=== PATIENT | male | born 1930 | race Caucasian/White ===

== ENCOUNTER 2016-07-29 11:38 | Emergency (ER) | payer MEDICARE, BC ==
[2016-07-29] MEDS ORDERED: Acetaminophen/HYDROcodone 325-5 MG Tab PO ONE (12:19)
[2016-07-29] MEDS ORDERED: Ibuprofen 600 MG Tab PO ONE (12:19)
--- NOTE | 2016-07-29 12:25 | EDM.PDOC ---
ED HPI GENERAL MEDICAL PROBLEM - General Chief Complaint: General Stated Complaint: RT SIDED PAIN Time Seen by Provider: 07/29/16 11:38 Source of Information: Reports: Patient, Family - History of Present Illness INITIAL COMMENTS - FREE TEXT/NARRATIVE: 85 y.o.w.m. fell over an object on his left chest 3 days ago over an objet. No N /V/D, chest pain, dizziness or light headedness or any other acute medical issues. . Onset Date: 07/26/16 Onset Time: 16:00 Duration: Day(s): Location: Reports: Chest Quality: Reports: Burning, Dull Severity: Moderate Improves with: Reports: Cold Therapy, Immobilization Worsens with: Reports: Movement Context: Reports: Trauma Left Thoracic Pain Score (Numeric/FACES): 8 - Related Data Allergies Allergy/AdvReac Type Severity Reaction Status Date / Time No Known Allergies Allergy Verified 07/29/16 11:50 Home Meds: Home Meds Acetaminophen/HYDROcodone [[place] 325-5 MG] 1 - 2 tab PO Q6H PRN #20 tab [Rx] ED ROS GENERAL - Review of Systems Review Of Systems: See Below Constitutional: Reports: No Symptoms HEENT: Reports: No Symptoms Respiratory: Reports: No Symptoms Cardiovascular: Reports: No Symptoms Endocrine: Reports: No Symptoms GI/Abdominal: Reports: No Symptoms : Reports: No Symptoms Musculoskeletal: Reports: Other (left chest wall pain) Skin: Reports: No Symptoms Neurological: Reports: No Symptoms Psychiatric: Reports: No Symptoms Hematologic/Lymphatic: Reports: No Symptoms Immunologic: Reports: No Symptoms ED EXAM, GENERAL - Physical Exam Exam: See Below Exam Limited By: Physical Impairment General Appearance: Alert, WD/WN, Mild Distress Eye Exam: Bilateral Eye: Normal Inspection Ears: Normal External Exam Ear Exam: Bilateral Ear: Auricle Normal Nose: Normal Inspection Throat/Mouth: Normal Inspection Head: Atraumatic, Normocephalic Neck: Normal Inspection, Supple, Non-Tender, Full Range of Motion Respiratory/Chest: No Respiratory Distress, Lungs Clear, Other (poor air movement due to left ant rib pain) Cardiovascular: Normal Peripheral Pulses, Regular Rate, Rhythm, No Edema, No Gallop, No JVD, No Murmur, No Rub, Other (tender ant CW) Peripheral Pulses: 1+: Femoral (L), Femoral (R) GI/Abdominal: Normal Bowel Sounds, Soft, Non-Tender, No Organomegaly, No Distention, No Abnormal Bruit, No Mass (Male) Exam: Deferred Rectal (Males) Exam: Deferred Back Exam: Normal Inspection, Full Range of Motion Extremities: Normal Inspection, Normal Range of Motion, Non-Tender Neurological: Alert, Oriented, CN II-XII Intact, Normal Cognition Psychiatric: Normal Affect, Normal Mood Skin Exam: Warm, Dry, Intact, Normal Color, No Rash Lymphatic: No Adenopathy EKG INTERPRETATION EKG Date: 07/29/16 Time: 12:50 Rhythm: NSR Rate (beats/min): 74 [place]: normal P-wave: present QRS: normal ST-T: normal QT: normal Comparison: NA - no prior EKG Course - Vital Signs Text/Narrative:: 85 y.o.w.m. fell over an object on his left chest 3 days ago over an object. No N/V/D, chest pain, dizziness or light headedness or any other acute medical issues. PE: Left an t rip pain Imaging: Left 9th rib fx Impression: Left 9th rib fx Tx: Ice, Vicodin, Motrin Reexam; improved Plan: D/C with instructions Last Recorded V/S: Last Vital Signs Temp 34.7 C L 07/29/16 11:45 Pulse 87 07/29/16 11:45 Resp 20 07/29/16 11:45 BP 172/86 H 07/29/16 11:45 Pulse Ox 99 07/29/16 11:45 - Orders/Labs/Meds Orders: Active Orders 24 hr Category Date Time Status CXR [Chest 2V] [CR] Stat Exams 07/29/16 12:20 Taken Ribs 2V wo Chest Lt [CR] Stat Exams 07/29/16 12:20 Taken Ice Bag [Ice Therapy] [OM.PC] Routine Oth 07/29/16 12:20 Ordered EKG 12 Lead [EK] Routine Ther 07/29/16 12:36 Ordered Meds: Medications Discontinued Medications Generic Name Dose Route Start Last Admin Trade Name Freq PRN Reason Stop Dose Admin Hydrocodone Bitart/Acetaminophen 1 tab 07/29/16 12:19 07/29/16 12:52 [place] 325-5 Mg PO 07/29/16 12:20 1 tab ONETIME ONE Administration Ibuprofen 600 mg 07/29/16 12:19 07/29/16 12:52 Motrin PO 07/29/16 12:20 600 mg ONETIME ONE Administration Departure - Departure Time of Disposition: 13:35 Disposition: Home, Self-Care 01 Condition: good Clinical Impression: Rib fracture Qualifiers: Encounter type: initial encounter Rib fracture type: single rib Fracture type: closed Laterality: left Qualified Code(s): S22.32XA - Fracture of one rib, left side, initial encounter for closed fracture - Discharge Information Prescriptions: Acetaminophen/HYDROcodone [[place] 325-5 MG] 1 - 2 tab PO Q6H PRN #20 tab PRN Reason: severe pain Forms: ED Department Discharge Additional Instructions: Please apply ice to the affected area, motrin 600 mg every 8 hours with food, [place] for severe pain only. Please come back if your symptoms get acutely worse. - My Orders Last 24 Hours: My Active Orders 07/29/16 12:20 CXR [Chest 2V] [CR] Stat Ribs 2V wo Chest Lt [CR] Stat Ice Bag [Ice Therapy] [OM.PC] Routine 07/29/16 12:36 EKG 12 Lead [EK] Routine - Assessment/Plan Last 24 Hours: My Active Orders 07/29/16 12:20 CXR [Chest 2V] [CR] Stat Ribs 2V wo Chest Lt [CR] Stat Ice Bag [Ice Therapy] [OM.PC] Routine 07/29/16 12:36 EKG 12 Lead [EK] Routine
[2016-07-29 14:04] VITALS: BP 150/78
--- NOTE | 2016-08-01 11:37 | CR ---
INDICATION: Fall on chest. Left lateral rib pain. Fell last Sunday. CHEST: PA and lateral views of the chest were obtained 07/29/2016, and revealed slightly increased density at the left costophrenic angle, raising question of minimal contusion in that area. A definite effusion was not seen. Minimal pneumonia could also be present at the costophrenic angle with the increased density there. Findings compatible with COPD, ASD aorta, and diminished bone density, raising question of osteoporosis are noted. A nodular density is noted in the left lower lobe posteriorly, most likely a granuloma. However, without old films for comparison, it is difficult to exclude other than benign disease. CT would be confirmatory if no old films are available for comparison. MTDD
== END 2016-07-29 14:05 | disposition home or self-care (01) ==
LOC: FB.ED 11:38
DX: S22.32XA Fracture of one rib, left side, initial encounter for closed fracture (principal); W01.0XXA Fall on same level from slipping, tripping and stumbling without subsequent striking against object, initial encounter
CPT/HCPCS: 71020; 71100; 93005; 99284; A9270; 99283

== ENCOUNTER 2016-08-02 16:35 | Emergency (ER) | payer MEDICARE, BC ==
--- NOTE | 2016-08-02 16:52 | EDM.PDOC ---
ED HPI GENERAL MEDICAL PROBLEM - General Stated Complaint: POTASSIUM CHECK Time Seen by Provider: 08/02/16 16:35 Source of Information: Reports: Patient, Family History Limitations: Reports: Physical Impairment - History of Present Illness INITIAL COMMENTS - FREE TEXT/NARRATIVE: 85 years old w m with a h/o CRI and CVA was refereed to our ed due to frequent falls. Pt was seen at the clinic today because he feel by just getting week. He injured his left arm/shoulder. X Rays were neg at the clinic. BMP showed a potassium level of 6.4 (hemolys'd) Cr. was 3.2. On arrival, pt was ambulatory, in no acute discomfort. ECG showed a NSR with peaked t waves, rate was 93. BP was 143/87. Pt denied pain. Onset: Today, Sudden Onset Date: 08/02/16 Onset Time: 12:00 Duration: Intermittent Location: Reports: Generalized Severity: Mild Improves with: Reports: Immobilization Worsens with: Reports: Movement Context: Reports: Other (falling) Right Upper Arm Pain Score (Numeric/FACES): 4 - Related Data Allergies Allergy/AdvReac Type Severity Reaction Status Date / Time No Known Allergies Allergy Verified 08/02/16 16:44 Home Meds: Home Meds Acetaminophen/HYDROcodone [[place] 325-5 MG] 1 - 2 tab PO Q6H PRN #20 tab [Rx] Clopidogrel Bisulfate [Clopidogrel] 75 mg PO DAILY 08/02/16 [History] Insulin Glarg,Human.Rec.Analog [Lantus Solostar] 100 units SUBCUT ASDIRECTED [History] Lisinopril 20 mg PO DAILY 08/02/16 [History] Simvastatin [Simvastatin] 10 mg PO BEDTIME 08/02/16 [History] metFORMIN HCl [Metformin HCl] 850 mg PO TID 08/02/16 [History] Past Medical History Cardiovascular History: Reports: Hypertension Neurological History: Reports: CVA, Other (See Below) Other Neuro History: stroke 2 years ago Psychiatric History: Reports: Depression Endocrine/Metabolic History: Reports: Diabetes, Type II Social & Family History - Tobacco Use Smoking Status *Q: Former Smoker Used Tobacco, but Quit: Yes Month Tobacco Last Used: 2 years ago - Caffeine Use Caffeine Use: Reports: Coffee, Soda - Recreational Drug Use Recreational Drug Use: No ED ROS GENERAL - Review of Systems Review Of Systems: See Below Constitutional: Reports: No Symptoms HEENT: Reports: No Symptoms Respiratory: Reports: No Symptoms Cardiovascular: Reports: Palpitations Endocrine: Reports: No Symptoms GI/Abdominal: Reports: No Symptoms : Reports: No Symptoms Musculoskeletal: Reports: Other (gen weakness) Skin: Reports: No Symptoms Neurological: Reports: Other (CVA 2 year ago) Psychiatric: Reports: No Symptoms Hematologic/Lymphatic: Reports: No Symptoms Immunologic: Reports: No Symptoms ED EXAM, GENERAL - Physical Exam Exam: See Below Exam Limited By: Physical Impairment (weakness) General Appearance: Alert, WD/WN, Mild Distress, Cachetic Eye Exam: Bilateral Eye: Normal Inspection Ears: Normal External Exam Ear Exam: Bilateral Ear: Auricle Normal Nose: Normal Inspection, Normal Mucosa Throat/Mouth: Normal Inspection, Normal Lips Head: Atraumatic, Normocephalic Neck: Normal Inspection, Supple, Non-Tender Respiratory/Chest: No Respiratory Distress, Lungs Clear Cardiovascular: Regular Rate, Rhythm GI/Abdominal: Normal Bowel Sounds, Soft, Non-Tender (Male) Exam: Deferred Rectal (Males) Exam: Deferred Back Exam: Normal Inspection Extremities: Normal Inspection, Normal Range of Motion, Non-Tender, No Pedal Edema Neurological: Alert, Oriented, CN II-XII Intact, Normal Cognition, Abnormal Gait Psychiatric: Normal Affect, Normal Mood EKG INTERPRETATION EKG Date: 08/02/16 Time: 16:55 Rhythm: NSR Rate (beats/min): 93 [place]: normal P-wave: present QRS: normal ST-T: normal QT: normal Comparison: NA - no prior EKG EKG Interpretation Comments: peaked t waves Course - Vital Signs Text/Narrative:: 85 years old w m with a h/o CRI and CVA was refereed to our ed due to frequent falls. Pt was seen at the clinic today because he feel by just getting week. He injured his left arm/shoulder. X Rays were neg at the clinic. BMP showed a potassium level of 6.4 (hemolys'd) Cr. was 3.2. On arrival, pt was ambulatory, in no acute discomfort. ECG showed a NSR with peaked t waves, rate was 93. BP was 143/87. Pt denied pain. Pt is in TRACI inhibitors and Motrin PE: Weak appearing 85 y.o.w.m. NAD, superficial abrasions left upper extr. head and r hand (wound care was applied DIRECTOR [employer] to the ed. Labs: Potassium 6.0 non hemolysed, Cr. 4.0 Imaging: CT head: NAD ECG: NSR rate 93, peaked T waves. Bladder scan: 157 cc after voiding Impression: Frequent falls, hyperkalemia. CRI, Dehydration, minor skin abrasions , UTI Tx: Albut neb, CaCl, D50/Insulin, Kayexalate 6 pm,Consultation: Dr. Medel, Nephrology [facility]: 6.10pm,Consultation: Dr. Fox, Hospitalist: accepted the pt for admission med/surge tele [facility] [place] Last Recorded V/S: Last Vital Signs Temp 36.3 C 08/02/16 19:00 Pulse 95 08/02/16 19:00 Resp 18 08/02/16 19:00 BP 169/68 H 08/02/16 19:00 Pulse Ox 99 08/02/16 19:00 - Orders/Labs/Meds Orders: Active Orders 24 hr Category Date Time Status EKG Documentation Completion [RC] ASDIRECTED Care 08/02/16 16:39 Active RT Aerosol Therapy [RC] ASDIRECTED Care 08/02/16 17:19 Active CULTURE URINE [RM] Stat Lab 08/02/16 18:55 Ordered Saline Lock Insert [OM.PC] Routine Oth 08/02/16 17:51 Ordered EKG 12 Lead [EK] Routine Ther 08/02/16 16:38 Ordered Labs: Laboratory Tests 08/02/16 08/02/16 08/02/16 Range/Units 16:50 16:50 16:50 WBC 9.7 (4.5-12.0) X10-3/uL RBC 4.55 (4.30-5.75) x10(6)uL Hgb 13.1 (11.5-15.5) g/dL Hct 39.7 (30.0-51.3) % MCV 87.3 (80-96) fL MCH 28.8 (27.7-33.6) pg MCHC 33.0 (32.2-35.4) g/dL RDW 12.9 (11.5-15.5) % Plt Count 313 (125-369) X10(3)uL MPV 7.6 (7.4-10.4) fL Neut % (Auto) 83.3 H (46-82) % Lymph % (Auto) 8.8 L (13-37) % [place] % (Auto) 7.1 (4-12) % Eos % (Auto) 0 L (1.0-5.0) % Baso % (Auto) 1 (0-2) % Neut # (Auto) 8.0 (1.6-8.3) # Lymph # (Auto) 0.9 (0.6-5.0) # [place] # (Auto) 0.7 (0.0-1.3) # Eos # (Auto) 0.0 (0.0-0.8) # Baso # (Auto) 0.1 (0.0-0.2) # PT 9.7 (8.7-11.1) INR 0.96 (0.89-1.13) Sodium 134 L (135-145) mmol/L Potassium 6.0 H (3.5-5.3) mmol/L Chloride 100 (100-110) mmol/L Carbon Dioxide 24 (23-29) mmol/L BUN 68 H (8-23) mg/dL Creatinine 4.0 H* (0.6-1.3) mg/dL Est Cr Clr Drug Dosing TNP Estimated GFR (MDRD) 14 L (>60) BUN/Creatinine Ratio 17.0 (9-20) Glucose 201 H (80-116) mg/dL POC Glucose (80-116) mg/dL Calcium 9.6 (8.6-10.2) mg/dL Magnesium 1.9 (1.8-2.5) mg/dL Troponin I (0.02-0.06) NG/ML Urine Color (YELLOW) Urine Appearance (CLEAR) Urine pH (5.0-6.5) Ur Specific [place] (1.010-1.025) Urine Protein (NEGATIVE) mg/dL Urine Glucose (UA) (NEGATIVE) mg/dL Urine Ketones (NEGATIVE) mg/dL Urine Occult Blood (NEGATIVE) Urine Nitrite (NEGATIVE) Urine Bilirubin (NEGATIVE) Urine Urobilinogen (NEGATIVE) mg/dL Ur Leukocyte Esterase (NEGATIVE) Urine RBC (0) Urine WBC (0) Ur Squamous Epith Cells (NS,R,O) Urine Bacteria (NS) 08/02/16 08/02/16 08/02/16 Range/Units 16:50 18:20 18:53 WBC (4.5-12.0) X10-3/uL RBC (4.30-5.75) x10(6)uL Hgb (11.5-15.5) g/dL Hct (30.0-51.3) % MCV (80-96) fL MCH (27.7-33.6) pg MCHC (32.2-35.4) g/dL RDW (11.5-15.5) % Plt Count (125-369) X10(3)uL MPV (7.4-10.4) fL Neut % (Auto) (46-82) % Lymph % (Auto) (13-37) % [place] % (Auto) (4-12) % Eos % (Auto) (1.0-5.0) % Baso % (Auto) (0-2) % Neut # (Auto) (1.6-8.3) # Lymph # (Auto) (0.6-5.0) # [place] # (Auto) (0.0-1.3) # Eos # (Auto) (0.0-0.8) # Baso # (Auto) (0.0-0.2) # PT (8.7-11.1) INR (0.89-1.13) Sodium (135-145) mmol/L Potassium (3.5-5.3) mmol/L Chloride (100-110) mmol/L Carbon Dioxide (23-29) mmol/L BUN (8-23) mg/dL Creatinine (0.6-1.3) mg/dL Est Cr Clr Drug Dosing Estimated GFR (MDRD) (>60) BUN/Creatinine Ratio (9-20) Glucose (80-116) mg/dL POC Glucose 318 H (80-116) mg/dL Calcium (8.6-10.2) mg/dL Magnesium (1.8-2.5) mg/dL Troponin I < 0.01 L (0.02-0.06) NG/ML Urine Color Yellow (YELLOW) Urine Appearance Cloudy (CLEAR) Urine pH 6.0 (5.0-6.5) Ur Specific [place] 1.010 (1.010-1.025) Urine Protein Negative (NEGATIVE) mg/dL Urine Glucose (UA) Normal (NEGATIVE) mg/dL Urine Ketones Negative (NEGATIVE) mg/dL Urine Occult Blood Moderate H (NEGATIVE) Urine Nitrite Negative (NEGATIVE) Urine Bilirubin Negative (NEGATIVE) Urine Urobilinogen Normal (NEGATIVE) mg/dL Ur Leukocyte Esterase Large H (NEGATIVE) Urine RBC 75-100 H (0) Urine WBC >100 H (0) Ur Squamous Epith Cells Moderate H (NS,R,O) Urine Bacteria Many H (NS) Meds: Medications Discontinued Medications Generic Name Dose Route Start Last Admin Trade Name Freq PRN Reason Stop Dose Admin Albuterol/Ipratropium 3 ml 08/02/16 17:18 08/02/16 17:54 Duoneb 3.0-0.5 Mg/3 Ml NEB 08/02/16 17:19 3 ml ONETIME ONE Administration Calcium Chloride 1 gm 08/02/16 17:49 08/02/16 18:11 Calcium Chloride 10% IV 08/02/16 17:50 1 gm ONETIME ONE Administration Dextrose/Water 50 ml 08/02/16 17:49 08/02/16 18:41 Dextrose 50% In Water IVPUSH 08/02/16 17:50 50 ml ONETIME ONE Administration Sodium Chloride 1,000 mls @ 125 mls/hr 08/02/16 17:45 08/02/16 17:56 Normal Saline IV 125 mls/hr ASDIRECTED ALTHEA Administration Insulin Human Regular 10 unit 08/02/16 17:49 08/02/16 18:35 Humulin R IVPUSH 08/02/16 17:50 10 units ONETIME ONE Administration Sodium Chloride 10 ml 08/02/16 17:51 08/02/16 17:55 Saline Flush FLUSH 10 ml ASDIRECTED PRN Administration Keep Vein Open Sodium Polystyrene Sulfonate 45 gm 08/02/16 17:18 08/02/16 17:44 Kayexalate PO 08/02/16 17:19 45 gm NOW ONE Administration Sodium Polystyrene Sulfonate Confirm 08/02/16 17:30 08/02/16 17:44 Kayexalate Administered 08/02/16 17:31 Not Given Dose 45 gm .ROUTE .STK-MED ONE Departure - Departure Time of Disposition: 18:54 Disposition: DC/Tfer to Other 70 Reason for Transfer *Q: Other (No adaptive physical education teacher is available) Condition: fair Clinical Impression: Hyperkalemia, Frequent falls Referrals: Cory Almendarez MD [Primary Care Provider] - Forms: ED Department Discharge - My Orders Last 24 Hours: My Active Orders 08/02/16 16:38 EKG 12 Lead [EK] Routine 08/02/16 16:39 EKG Documentation Completion [RC] ASDIRECTED 08/02/16 17:19 RT Aerosol Therapy [RC] ASDIRECTED 08/02/16 17:51 Saline Lock Insert [OM.PC] Routine 08/02/16 18:55 CULTURE URINE [RM] Stat - Assessment/Plan Last 24 Hours: My Active Orders 08/02/16 16:38 EKG 12 Lead [EK] Routine 08/02/16 16:39 EKG Documentation Completion [RC] ASDIRECTED 08/02/16 17:19 RT Aerosol Therapy [RC] ASDIRECTED 08/02/16 17:51 Saline Lock Insert [OM.PC] Routine 08/02/16 18:55 CULTURE URINE [RM] Stat
[2016-08-02] MEDS ORDERED: Albuterol/Ipratropium 3.0-0.5 MG/3 ML Neb Soln NEB ONE (17:18)
[2016-08-02] MEDS ORDERED: Sodium Polystyrene Sulfonate 15 GM/60 ML Susp 60 ML Bot ONE (17:30)
[2016-08-02] MEDS: Sodium Polystyrene Sulfonate 15 GM/60 ML Susp 60 ML Bot PO ONE ×2 (17:43→17:44)
[2016-08-02] MEDS ORDERED: Sodium Chloride 0.9% 1,000 ML IV SCH (17:45)
[2016-08-02] MEDS ORDERED: 50% Dextrose in Water 50 ML Syringe IVPUSH ONE (17:49)
[2016-08-02] MEDS ORDERED: Calcium Chloride 10% 1 GM/10 ML Syringe IV ONE (17:49)
[2016-08-02] MEDS ORDERED: Insulin Regular, Human 100 Units/ML 3 ML Vial IVPUSH ONE (17:49)
[2016-08-02] MEDS ORDERED: Sodium Chloride 0.9% 10 ML Syringe FLUSH PRN (17:51)
[2016-08-02 19:02] VITALS: BP 169/68
--- NOTE | 2016-08-03 08:30 | CT ---
INDICATION: Frequent falls, question bleed. Previous stroke 1 1/2 years ago. Hit left orbital area. No headache or dizziness. CT HEAD WITHOUT CONTRAST: Serial contiguous 2.5 and 5-mm sections were obtained through the brain without contrast, 08/02/2016. No comparisons were available. Total Exam DLP = 949.36 mGy-cm. There are some probable dystrophic calcifications in the cerebellum, most likely not of clinical significance. Calcification is noted in the basilar and internal carotid arteries. A moderate sized probable lacunar infarct is noted at the left thalamus. A very minimal area of ill defined possible ischemia or lacunar infarct is seen at the right thalamus. Some minimal periventricular white matter changes suggest minimal microvascular disease. A moderately large area of encephalomalacia is noted in the area of the left occipital lobe medially, compatible with encephalomalacia from a previous CVA. No shift of midline structures or ventricular abnormalities were identified. Only minimal prominence of cortical sulci is noted, compatible with the patient s age. Paranasal sinuses appear to be well aerated, as are the mastoid air cells. No evidence of a cranial fracture site or significant appearing scalp hematoma could be identified. IMPRESSION: 1. No acute intracranial abnormalities identified. 2. Mild generalized atrophy compatible with the patients age. 3. Minimal microvascular disease may be present, although other cause of leukoencephalopathy of mild degree could not be excluded. 4. Cerebrovascular disease with calcifications in basilar and internal carotid arteries. 5. 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 Yeboah at 1822 hours, 08/02/2016. CHANTELLE
== END 2016-08-02 19:00 | disposition other institution (70) ==
LOC: FB.ED 16:35
DX: E87.5 Hyperkalemia (principal); R29.6 Repeated falls; Z79.899 Other long term (current) drug therapy; I10 Essential (primary) hypertension; E11.9 Type 2 diabetes mellitus without complications; Z79.84 Long term (current) use of oral hypoglycemic drugs; Z79.4 Long term (current) use of insulin; Z87.891 Personal history of nicotine dependence; Z86.73 Personal history of transient ischemic attack (TIA), and cerebral infarction without residual deficits
CPT/HCPCS: 36415; 70450; 80048; 81001; 82962; 83735; 84484; 85025; 85610; 87086; 87088; 87186; 93005; 94640; 96361; 96374; 96375; 99285; A9270; J1815; J7040; J7050; J7620